=== PATIENT | male | born 1960 | race Caucasian/White ===

== ENCOUNTER 2019-06-11 19:30 | Emergency (ER) | payer MEDICAID ==
[~2019-06-11] VITALS: Ht 180.3 cm; Wt 88.5 kg
[2019-06-11 19:30] VITALS: BP 145/79
--- NOTE | 2019-06-11 19:30 | NUR ---
PATIENT AMBULATED TO ER BED 7.
--- NOTE | 2019-06-11 19:40 | NUR ---
DR. SCHWAB AT BEDSIDE
--- NOTE | 2019-06-11 19:45 | NUR ---
C/O PRESTERNAL CHEST PAIN RADIATING TO BILAT SHOULDERS AND BACK 9/10 AND SHARP STARTING YESTERDAY AFTER MOVING HEAVY OBJECTS. PT REPORTS THAT THE PAIN STARTED AFTER HE WAS MOVING THE OBJECT. PT HAS BEEN USING ICY HOT CREAM WITH VERY LITTLE RELIEF. PT DENIES SOB, NAUSEA, VOMITING. PT SPEAKING IN CLEAR, FULL SENTENCES. PT STATES IT IS UNCOMFORTABLE TO LAY IN BED SO HE IS SITTING AT THE SIDE. BED IN LOW POSITION, SIDE RAIL UP X1. 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
[2019-06-11] MEDS ORDERED: AMLO10TA PO (19:48)
[2019-06-11] MEDS ORDERED: TERA1CAP7 PO (19:48)
[2019-06-11] MEDS ORDERED: ASPI-1205 PO (19:48)
[2019-06-11] MEDS ORDERED: CEPH250C16 PO (19:48)
[2019-06-11] MEDS ORDERED: SIMV10TA1 PO (19:48)
[2019-06-11] MEDS ORDERED: METF500T2 PO (19:48)
[2019-06-11] MEDS ORDERED: BENA20TA PO (19:48)
[2019-06-11] MEDS ORDERED: KETOROLAC 60 MG/2 ML VIAL IM ONE (19:50)
[2019-06-11 21:30] VITALS: BP 145/79
--- NOTE | 2019-06-11 21:30 | NUR ---
DPatient discharged with v/s stable. Written and verbal after care instructions given and explained BY DR SCHWAB. Patient alert, oriented and verbalized understanding of instructions. Ambulatory with steady gait. All questions addressed prior to discharge. ID band removed. Patient advised to follow up with PMD. Rx of NAPROSYN given. Patient educated on indication of medication including possible reaction and side effects BY DR SCHWAB. Opportunity to ask questions provided and answered BY DR SCHWAB.
== END 2019-06-11 21:30 | disposition home or self-care (01) ==
LOC: MED 19:30
DX: S23.9XXA Sprain of unspecified parts of thorax, initial encounter (principal); I10 Essential (primary) hypertension; Z79.82 Long term (current) use of aspirin; Z79.84 Long term (current) use of oral hypoglycemic drugs; Z79.899 Other long term (current) drug therapy; X58.XXXA Exposure to other specified factors, initial encounter; Y93.89 Activity, other specified; Y92.89 Other specified places as the place of occurrence of the external cause; Y99.8 Other external cause status
CPT/HCPCS: 71045; 96372; 99283; J1885; Q0092

== ENCOUNTER 2019-08-24 11:02 | Inpatient (IN) | payer MEDICAID ==
[~2019-08-24] VITALS: Ht 172.7 cm; Wt 87.5 kg
[~2019-08-24 11:02] MED LIST: AMLO10TA PO; ASPI-1205 PO; BENA20TA PO; CEPH250C16 PO; METF500T2 PO; SIMV10TA1 PO; TERA1CAP7 PO
[2019-08-24 11:07] VITALS: BP 151/81
--- NOTE | 2019-08-24 11:12 | NUR ---
Patient ambulated to bed 11.
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
[2019-08-24] MEDS ORDERED: ASPIRIN 81 MG TAB.CHEW PO ONE (11:50)
--- NOTE | 2019-08-24 12:16 | NUR ---
EKG AT BEDSIDE.
--- NOTE | 2019-08-24 13:00 | NUR ---
LABS DRAWN AT BEDSIDE
[2019-08-24 13:20] LABS: HEMATOCRIT 37.1 % (36-52); HEMOGLOBIN 12.4 g/dL (12.0-18.0); MEAN CORPUSCULAR HEMOGLOBIN 32 pg (27-31); MEAN CORPUSCULAR HGB CONC 34 g/dL (33-37); MEAN CORPUSCULAR VOLUME 96.4 fL (80-94); PLATELET COUNT (AUTO) 251 K/uL (140-450); RED BLOOD CELL COUNT(AUTO) 3.84 MIL/uL (4.20-6.10); RED CELL DISTRIBUTION WIDTH 12.8 % (11.6-13.7); WHITE BLOOD COUNT (AUTO) 9.8 K/uL (4.8-10.8)
[2019-08-24 13:24] LABS: ANION GAP 11.5 (8-16); CARBON DIOXIDE 28.3 mmol/L (21-32); CREATININE 0.8 mg/dL (0.7-1.3); POTASSIUM 3.8 mmol/L (3.5-5.1)
[2019-08-24 13:25] LABS: LYMPHOCYTES % (MANUAL) 20 % (20-46)
[2019-08-24 13:26] LABS: EOSINOPHILS % (MANUAL) 1 % (0-4); MONOCYTES % (MANUAL) 9 % (5-12)
[2019-08-24 13:30] LABS: ALBUMIN 3.3 g/dL (3.4-5.0); TOTAL BILIRUBIN 0.3 mg/dL (0.0-1.0)
[2019-08-24] MEDS ORDERED: MORPHINE SULFATE 2 MG/ML SYR IVP PRN (13:45)
[2019-08-24] MEDS ORDERED: ACETAMINOPHEN 325 MG TAB PO PRN (13:45)
[2019-08-24] MEDS ORDERED: ONDANSETRON 4 MG/2 ML VIAL IM/IVP PRN (13:45)
[2019-08-24] MEDS ORDERED: DOCUSATE SODIUM 100 MG GELCAP PO PRN (13:45)
[2019-08-24 14:00] VITALS: BP 169/83
--- NOTE | 2019-08-24 14:00 | NUR ---
PATIENT ARRIVED ON [facility] [[email or web address]] FROM ER VIA GURROUND TOP. ABLE TO AMBULATE FROM [facility] TO [facility] [[email or web address]] BED WITH STEADY GAIT. AAOX4, CALM, COOPERATIVE, SKIN COLOR APPROPRIATE TO ETHNICITY, WARM TO TOUCH. SKIN INTACT. IV SITE INTACT, PATENT, AND INFUSING IVF PER MD ORDERS. ORIENTED PATIENT TO ROOM AND CALL LIGHT. REVIEWED PLAN OF CARE WITH PATIENT. PATIENT VERBALIZED UNDERSTANDING. SAFETY MEASURES IN PLACE, CALL LIGHT WITHIN REACH. WILL CONTINUE TO MONITOR.
--- NOTE | 2019-08-24 14:06 | NUR ---
Pt transferred to Tele via [facility] ROOM 105-A, REPORT GIVEN TO RANJANA CRUZ
[2019-08-24] MEDS ORDERED: MORPHINE SULFATE 2 MG/ML SYR IV PRN (14:25)
[2019-08-24] MEDS ORDERED: NITROGLYCERIN 0.4 MG TAB SL PRN (14:25)
[2019-08-24] MEDS ORDERED: DEXTROSE 50% 50 ML SYR IVP PRN (14:35)
[2019-08-24] MEDS ORDERED: INSULIN LISPRO SLIDING SCALE 100 UNITS/ML VIAL SUBQ PRN (14:35)
[2019-08-24 14:49] LABS: PROTHROMBIN TIME 10.9 secs (10.8-13.4)
[2019-08-24] MEDS: HYDROcodone/APAP 7.5/325 MG 1 TAB PO PRN ×2 (14:58→21:52)
[2019-08-24] MEDS: NACL 0.9% 1,000 ML IV SCH (15:04)
--- NOTE | 2019-08-24 15:04 | NUR ---
PATIENT COMPLAINS OF PAIN ON UPPER BACK. NORCO GIVEN AT THIS TIME. WILL CONTINUE TO MONITOR.
[2019-08-24 15:26] LABS: CHOL/HDL RATIO 4.2 (1-4.5); MAGNESIUM 2.1 mg/dL (1.8-2.4); PHOSPHORUS 3.8 mg/dL (2.5-4.9)
[2019-08-24 15:49] LABS: THYROID STIMULATING HORMONE 1.94 uIU/mL (0.34-3.74)
[2019-08-24 16:00] VITALS: BP 155/71
[2019-08-24] MEDS: BLOOD GLUCOSE MONITORING 1 DEV DEV FS SCH ×2 (16:30→21:47)
[2019-08-24 16:43] LABS: APPEARANCE,URINE CLEAR (CLEAR); BILIRUBIN,URINE NEGATIVE (NEGATIVE); BLOOD, URINE NEGATIVE (NEGATIVE); COLOR,URINE YELLOW (YELLOW); LEUKOCYTE ESTERASE ,URINE NEGATIVE (NEGATIVE); NITRITE, URINE NEGATIVE (NEGATIVE); UGLUCOSE 2+ (NEGATIVE)
[2019-08-24 16:50] LABS: BARBITURATE, URINE NEG. ng/ml (NEG <=200); BENZODIAZEPINE, URINE NEG. ng/mL (NEG <=200); CANNABINOID, URINE NEG. ng/mL (NEG <=50); COCAINE, URINE NEG. ng/mL (NEG <=300); OPIATE, URINE NEG. ng/mL (NEG <=2000); PHENCYCLIDINE SCREEN,URINE NEG. ng/mL (NEG <=25)
[2019-08-24 16:59] LABS: RBC,URINE NONE SEEN /HPF (0-5); WBC,URINE 0-5 /HPF (0-5)
--- NOTE | 2019-08-24 19:26 | NUR ---
GAVE REPORT TO STARS ANALYTICAL LEAD NURSE FOR CONTINUITY OF CARE. PATIENT IN STABLE CONDITION
--- NOTE | 2019-08-24 19:27 | NUR ---
RECEIVED BEDSIDE REPORT FROM DAY RN. PT IS AAOX4 ON RA. PT IS AMBULATORY WITH STEADY GAIT AND SKIN IS INTACT. IV ON R FA 20G NS AT 60M/H. C/C CHEST PAIN RADIATES TO BACK. COOK CHILL TECHNICIAN SAW PT TODAY. WILL TREND TROPONIN PATIENT IS OBSERVATION. POC DISCUSSED WITH PT AND . CALL LIGHT IS WITHIN REACH. WILL ROUND FREQUENTLY.
[2019-08-24 20:00] VITALS: BP 150/77
[2019-08-24] MEDS ORDERED: SIMVASTATIN 40 MG TAB PO SCH (21:00)
[2019-08-24] MEDS ORDERED: SIMVASTATIN 10 MG TAB PO SCH (21:00)
--- NOTE | 2019-08-24 21:50 | NUR ---
VITAL SIGNS ARE WITHIN NORMAL LIMITS. CEE MEDICATIONS GIVEN PER ORDERS. BLOOD SUGAR IS 167 PT REFUSED INSULIN JUST FINISHED DINNER TRAY. WILL RECHECK IN AM EDUCATION GIVEN. NORCO GIVEN FOR BACK PAIN 04/22. ALL SAFETY MEASURES ARE IN PLACE. WILL CONTINUE TO MONITOR.
[2019-08-24] MEDS: BENAZEPRIL 20 MG TAB PO SCH (21:52)
[2019-08-24] MEDS: METOPROLOL 50 MG TAB PO SCH (21:53)
[2019-08-25] VITALS: BP 126/64
--- NOTE | 2019-08-25 00:09 | NUR ---
VITAL SIGNS ARE WITHIN NORMAL LIMITS. SAFETY MEASURES ARE IN PLACE. CALL LIGHT IS WITHIN REACH.
--- NOTE | 2019-08-25 02:00 | NUR ---
PATIENT IS RESTING COMFORTABLY IN BED WITH EYES CLOSED. RESPIRATIONS ARE EQUAL AND UNLABORED. CALL LIGHT IS WITHIN REACH.
[2019-08-25 04:00] VITALS: BP 157/82
--- NOTE | 2019-08-25 04:00 | NUR ---
VITAL SIGNS ARE WITHIN NORMAL LIMITS. SAFETY MEASURES ARE IN PLACE. CALL LIGHT IS WITHIN REACH. WILL CONTINUE TO MONITOR
--- NOTE | 2019-08-25 05:30 | NUR ---
BLOOD SUGAR IS 114 NO COVERAGE NEEDED. ALL NEEDS MET AT THIS TIME. CALL LIGHT IS WITHIN REACH.
[2019-08-25] MEDS: NACL 0.9% 1,000 ML IV SCH (06:07)
[2019-08-25] MEDS: BLOOD GLUCOSE MONITORING 1 DEV DEV FS SCH ×2 (06:16→11:30)
[2019-08-25 06:55] LABS: HEMATOCRIT 36.6 % (36-52); HEMOGLOBIN 12.2 g/dL (12.0-18.0); MEAN CORPUSCULAR HEMOGLOBIN 32 pg (27-31); MEAN CORPUSCULAR HGB CONC 33 g/dL (33-37); MEAN CORPUSCULAR VOLUME 96.4 fL (80-94); PLATELET COUNT (AUTO) 236 K/uL (140-450); RED BLOOD CELL COUNT(AUTO) 3.79 MIL/uL (4.20-6.10); WHITE BLOOD COUNT (AUTO) 8.9 K/uL (4.8-10.8)
[2019-08-25 07:16] LABS: CARBON DIOXIDE 28.1 mmol/L (21-32); CREATININE 0.7 mg/dL (0.7-1.3); POTASSIUM 4.1 mmol/L (3.5-5.1)
--- NOTE | 2019-08-25 07:17 | NUR ---
GAVE BEDSIDE REPORT TO DAY RN. PT ENDORSED IN STABLE CONDITION.
--- NOTE | 2019-08-25 07:18 | NUR ---
RECEIVED REPORT FROM RECOVERY ENGINEER NURSE. PATIENT LYING DOWN IN BED WATCHING TV, AT BEDSIDE. NO DISTRESS NOTED. DENIES ANY PAIN AT THIS TIME. AAXO4, CALM, COOPERATIVE SKIN COLOR APPROPRIATE TO ETHNICITY, WARM TO TOUCH. SKIN INTACT. IV SITE INTACT, PATENT, AND INFUSING IVF PER MD ORDERS. ABDOMEN SOFT, NON-DISTENDED. SAFETY MEASURES IN PLACE, CALL LIGHT WITHIN REACH. WILL CONTINUE TO MONITOR.
[2019-08-25 07:19] LABS: MAGNESIUM 1.9 mg/dL (1.8-2.4); PHOSPHORUS 3.7 mg/dL (2.5-4.9)
[2019-08-25 08:00] VITALS: BP 178/89
[2019-08-25 08:11] LABS: BASOPHILS % (MANUAL) 0 % (0-2); EOSINOPHILS % (MANUAL) 3 % (0-4); LYMPHOCYTES % (MANUAL) 23 % (20-46); MONOCYTES % (MANUAL) 12 % (5-12)
[2019-08-25 08:22] LABS: T4 (THYROXINE) 5.3 ug/dL (4.5-12.0)
[2019-08-25] MEDS ORDERED: ASPI81CT95 PO (08:29)
[2019-08-25] MEDS ORDERED: amLODIPine 5 MG TAB PO SCH (09:00)
[2019-08-25] MEDS ORDERED: ASPIRIN 81 MG TAB.CHEW PO SCH (09:00)
[2019-08-25] MEDS ORDERED: TERAZOSIN 1 MG CAP PO SCH (09:00)
[2019-08-25] MEDS: METOPROLOL 50 MG TAB PO SCH (09:25)
[2019-08-25] MEDS: BENAZEPRIL 20 MG TAB PO SCH (09:26)
[2019-08-25] MEDS: HYDROcodone/APAP 7.5/325 MG 1 TAB PO PRN (09:28)
--- NOTE | 2019-08-25 09:30 | NUR ---
PATIENT SITTING IN BED WATCHING TV. COMPLAINS OF UPPER BACK PAIN, NORCO GIVEN AT THIS TIME. OTHER SCHEDULED MEDICATIONS DUE GIVEN. WILL CONTINUE TO MONITOR.
[2019-08-25] MEDS ORDERED: ENALAPRILAT 2.5 MG/2 ML VIAL IVP SCH (10:46)
--- NOTE | 2019-08-25 11:09 | NUR ---
PATIENT SITTING IN BED WATCHING TV. NO DISTRESS NOTED. DENIES ANY PAIN. SCHEDULED MEDICATIONS DUE GIVEN. WILL CONTINUE TO MONITOR.
[2019-08-25] MEDS ORDERED: INFLUENZA VACCINE QUAD 0.5 ML SYR IMVAC PRN (11:25)
[2019-08-25 12:00] VITALS: BP 141/66
[2019-08-25] MEDS ORDERED: CYCLOBENZAPRINE 10 MG TAB PO SCH (13:00)
--- NOTE | 2019-08-25 13:03 | NUR ---
PATIENT TO BE DISCHARGED. SCHEDULED MEDICATIONS DUE GIVEN. WILL CONTINUE TO [facility].
--- NOTE | 2019-08-25 13:55 | NUR ---
DISCHARGE INSTRUCTIONS PROVIDED TO PATIENT IN PREFERRED LANGUAGE OF POLISH. INSTRUCTIONS ON NEW/CHANGED MEDICATION REGIMEN AND SIDE EFFECTS, DIABETIC DIET REGIMEN DUE TO PREDIABETES, FOLLOW-UP WITH PCP WITHIN 3-5 DAYS AND GET A RECOMMENDED ECHOCARDIOGRAM FROM EMERGENCY MANAGEMENT DIRECTOR. IV SITE REMOVED WITH MINIMAL BLOOD AND LUMEN COMPLETELY INTACT. ALL BELONGINGS WITH PATIENT. PRESCRIPTIONS GIVEN TO PATIENT. ESCORTED PATIENT DOWN TO LOBBY VIA STEADY AMBULATION. PATIENT DISCHARGED AT THIS TIME IN STABLE CONDITION TO HOME VIA PRIVATE VEHICLE.
== END 2019-08-25 13:55 | disposition home or self-care (01) | DRG 203 ==
LOC: MED 11:02 → MTU 13:44
PROVIDERS: ADMIT Family Medicine; ATTEND Family Medicine
DX: M94.0 Chondrocostal junction syndrome [Tietze] (principal); I11.9 Hypertensive heart disease without heart failure; E11.65 Type 2 diabetes mellitus with hyperglycemia; E78.5 Hyperlipidemia, unspecified; E44.1 Mild protein-calorie malnutrition; F17.210 Nicotine dependence, cigarettes, uncomplicated; N40.0 Benign prostatic hyperplasia without lower urinary tract symptoms; Z83.3 Family history of diabetes mellitus; J98.11 Atelectasis; Z68.29 Body mass index [BMI] 29.0-29.9, adult
CPT/HCPCS: 36415; 71045; 80048; 80053; 80305; 81001; 82150; 82550; 82948; 83036; 83690; 83735; 83880; 84100; 84436; 84443; 84484; 85025; 85610; 85730; 87081; 93005; 99285; J3490; J7030

== ENCOUNTER 2019-08-26 05:30 | Emergency (ER) | payer MEDICAID ==
[~2019-08-26] VITALS: Ht 177.8 cm; Wt 88.5 kg
[~2019-08-26 05:30] MED LIST changes: -ASPI-1205 PO; +ASPI81CT95 PO; -CEPH250C16 PO
[2019-08-26 05:40] VITALS: BP 165/74
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
[2019-08-26] MEDS ORDERED: ACETAMINOPHEN 325 MG TAB PO ONE (06:25)
[2019-08-26] MEDS ORDERED: IBUPROFEN 600 MG TAB PO ONE (06:25)
[2019-08-26 07:01] VITALS: BP 145/74
--- NOTE | 2019-08-26 07:02 | NUR ---
Patient discharged with v/s stable. Written and verbal after care instructions given and explained. Patient verbalized understanding. Ambulatory with steady gait. All questions addressed prior to discharge. Advised to follow up with PMD.
== END 2019-08-26 07:02 | disposition home or self-care (01) ==
LOC: MED 05:30
DX: R50.9 Fever, unspecified (principal); I10 Essential (primary) hypertension; Z79.899 Other long term (current) drug therapy
CPT/HCPCS: 99283

== ENCOUNTER 2020-09-28 13:44 | Emergency (ER) | payer MEDICAID ==
[~2020-09-28] VITALS: Ht 180.3 cm; Wt 88.5 kg
[2020-09-28 14:06] VITALS: BP 130/79
--- NOTE | 2020-09-28 14:14 | NUR ---
WAIT AT LOBBY.
[2020-09-28] MEDS ORDERED: ACETAMINOPHEN 325 MG TAB PO ONE (15:20)
--- NOTE | 2020-09-28 15:20 | NUR ---
PT TAKEN TO CT VIA W/C, ACCOMPANIED BY CRUISE STAFF MEMBER.
--- NOTE | 2020-09-28 15:29 | NUR ---
PT TAKEN TO BED 3 VIA W/C FROM CT BY ALPINE PATROLLER
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
--- NOTE | 2020-09-28 16:02 | NUR ---
Dr. Donis is evaluating the patient at bedside.
[2020-09-28 16:20] VITALS: BP 130/79
--- NOTE | 2020-09-28 16:20 | NUR ---
Patient discharged with v/s stable. Written and verbal after care instructions about nasal fracture given and explained. Patient verbalized understanding. Ambulatory with steady gait. All questions addressed prior to discharge. Advised to follow up with PMD.
== END 2020-09-28 16:20 | disposition home or self-care (01) ==
LOC: MED 13:44
DX: S02.2XXA Fracture of nasal bones, initial encounter for closed fracture (principal); E11.9 Type 2 diabetes mellitus without complications; I10 Essential (primary) hypertension; Z79.84 Long term (current) use of oral hypoglycemic drugs; Z79.899 Other long term (current) drug therapy; W50.0XXA Accidental hit or strike by another person, initial encounter; Y93.89 Activity, other specified; Y92.89 Other specified places as the place of occurrence of the external cause; Y99.8 Other external cause status
CPT/HCPCS: 70450; 70486; 99285

== ENCOUNTER 2021-10-06 18:55 | Emergency (ER) | payer MEDICAID ==
[~2021-10-06] VITALS: Ht 180.3 cm; Wt 90.8 kg
--- NOTE | 2021-10-06 19:03 | NUR ---
NAME WAS CALLED IN LOBBY, NO ANSWER
[2021-10-06 19:17] VITALS: BP 131/96
--- NOTE | 2021-10-06 19:26 | NUR ---
PT AMBULATED TO LOBBY.
--- NOTE | 2021-10-06 20:06 | NUR ---
name called in lobby no answer.
--- NOTE | 2021-10-06 20:10 | NUR ---
pt ambulated to bed 11.
--- NOTE | 2021-10-06 20:17 | NUR ---
Dr. Campbell examining patient.
[2021-10-06] MEDS ORDERED: BACITRACIN OINT 500 UNITS/GM PKT TP ONE ×2 (20:23→20:25)
[2021-10-06] MEDS ORDERED: BACI1PAC6 TP (20:35)
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
[2021-10-06 20:43] VITALS: BP 131/96
--- NOTE | 2021-10-06 20:43 | NUR ---
no nursing interventions required.
== END 2021-10-06 20:43 | disposition home or self-care (01) ==
LOC: MED 18:55
DX: S91.101A Unspecified open wound of right great toe without damage to nail, initial encounter (principal); E11.9 Type 2 diabetes mellitus without complications; I10 Essential (primary) hypertension; Z88.0 Allergy status to penicillin; Z79.899 Other long term (current) drug therapy; Z79.82 Long term (current) use of aspirin; Z79.84 Long term (current) use of oral hypoglycemic drugs; W01.198A Fall on same level from slipping, tripping and stumbling with subsequent striking against other object, initial encounter; Y93.89 Activity, other specified; Y92.89 Other specified places as the place of occurrence of the external cause; Y99.8 Other external cause status
CPT/HCPCS: 99282

== ENCOUNTER 2021-11-03 12:08 | Emergency (ER) | payer MEDICAID ==
[~2021-11-03] VITALS: Ht 170.2 cm; Wt 89.6 kg
[~2021-11-03 12:08] MED LIST changes: +BACI1PAC6 TP
[2021-11-03 12:34] VITALS: BP 175/84
[2021-11-03] MEDS ORDERED: IBUPROFEN 600 MG TAB PO ONE (13:05)
--- NOTE | 2021-11-03 13:30 | NUR ---
61 y/o M BIB self from home c/o L knee pain s/p mechanical fall 2 days ago. Patient ambulatory, states he fell onto his hands and knees two days ago. Denies LOC, head/neck/back pain. States bilateral knee pain L > R pain, 3/10, pressure/intermittent, non-radiating pain. Denies LOC. States pain worsens with ambulating. Slight swelling noted to L knee cap. PMH: Pre-DM, HTN meds: Metformin, amlodipine, benazeapril, ASA A: PCN
--- NOTE | 2021-11-03 13:31 | NUR ---
Patient ambulated to chair C
[2021-11-03] MEDS ORDERED: IBUP-2213 PO ×2 (13:57→14:33)
--- NOTE | 2021-11-03 14:20 | NUR ---
Patient's left knee was flip wrapped. ER PA notified and aware of wrap.
== END 2021-11-03 13:33 | disposition home or self-care (01) ==
LOC: MED 12:08
DX: S83.92XA Sprain of unspecified site of left knee, initial encounter (principal); W01.0XXA Fall on same level from slipping, tripping and stumbling without subsequent striking against object, initial encounter; Y93.89 Activity, other specified; Y92.89 Other specified places as the place of occurrence of the external cause; Y99.8 Other external cause status
CPT/HCPCS: 73562; 99283

== ENCOUNTER 2022-01-08 08:55 | Emergency (ER) | payer MEDICAID ==
[~2022-01-08] VITALS: Ht 180.3 cm; Wt 88.5 kg
[~2022-01-08 08:55] MED LIST changes: +IBUP-2213 PO
[2022-01-08 08:58] VITALS: BP 190/73
--- NOTE | 2022-01-08 09:18 | NUR ---
PATIENT AMBULATED TO BED 9
--- NOTE | 2022-01-08 09:22 | NUR ---
61/M BIB SELF C/O OF LEFT KNEE PAIN. PATIENT STATED IT HAS BEEN ONGOING FOR THE PAST 2 MONTHS ON BOTH KNEES, BUT LEFT KNEE IS THE ONE THAT CAUSES THE MOST PAIN. PATIENT STATED THE PAIN IS 7/10 AT THIS TIME. HAS TAKEN IBUPROFEN WITH MINOR RELIEF. PMHX: DM, HTN ALLERGIES: PENICILLIN MEDS: ASPIRIN, NOPROXEN,AMLODIPINE, BENAZAPRIL, METFORMIN
[2022-01-08] MEDS ORDERED: KETOROLAC 30 MG/ML VIAL IM ONE (09:30)
--- NOTE | 2022-01-08 09:49 | NUR ---
PATIENT WC TO RADIOLOGY
--- NOTE | 2022-01-08 10:09 | NUR ---
PATIENT RETURNED FROM RADIOLOGY
--- NOTE | 2022-01-08 10:51 | NUR ---
PATIENT STABLE IN BED, ALL NEEDS MET
[2022-01-08] MEDS ORDERED: NAPR-1704 PO (11:24)
--- NOTE | 2022-01-08 11:33 | NUR ---
patients left knee wrapped with 3in flip wrap
[2022-01-08 11:46] VITALS: BP 177/75
== END 2022-01-08 11:46 | disposition home or self-care (01) ==
LOC: MED 08:55
DX: M70.51 Other bursitis of knee, right knee (principal); M70.52 Other bursitis of knee, left knee; Y93.89 Activity, other specified
CPT/HCPCS: 73562; 96372; 99284; J1885

== ENCOUNTER 2024-07-31 22:11 | Emergency (ER) | payer MEDICAID ==
[~2024-07-31] VITALS: Ht 180.3 cm; Wt 83.9 kg
[~2024-07-31 22:11] MED LIST changes: +BACI-418 TP; -BACI1PAC6 TP; +METF-1139 PO; -METF500T2 PO; +NAPR-1704 PO; +SIMV-371 PO; -SIMV10TA1 PO
[2024-07-31 22:25] VITALS: BP 144/61; PULSE 76; RESP 18; TEMP 98; O2SAT 99
[2024-08-01 00:43] LABS: BASOPHILS # (AUTO) 0.4 K/uL (0.00-0.22); EOSINOPHILS # (AUTO) 0.1 K/uL (0-0.4); EOSINOPHILS % (AUTO) 0.9 % (0.0-4.0); HEMATOCRIT 35.6 % (36-52); LYMPHOCYTES # (AUTO) 1.6 K/uL (2.0-11.5); LYMPHOCYTES % (AUTO) 12.9 % (20.5-51.1); MEAN CORPUSCULAR HEMOGLOBIN 32 pg (27-31); MEAN CORPUSCULAR HGB CONC 34 g/dL (33-37); MEAN CORPUSCULAR VOLUME 95.8 fL (80-94); MONOCYTES # (AUTO) 1.4 K/uL (0.8-1.0); MONOCYTES % (AUTO) 11.3 % (1.7-9.3); NEUTROPHILS # (AUTO) 9.1 K/uL (1.8-7.7); NEUTROPHILS % (AUTO) 71.9 % (42.2-75.2); PLATELET COUNT (AUTO) 231 K/uL (140-450); RED BLOOD CELL COUNT(AUTO) 3.72 MIL/uL (4.20-6.10); RED CELL DISTRIBUTION WIDTH 13.1 % (11.6-13.7); WHITE BLOOD COUNT (AUTO) 12.7 K/uL (4.8-10.8)
[2024-08-01] MEDS: KETOROLAC 60 MG/2 ML VIAL IM ONE (00:50)
[2024-08-01 01:05] LABS: ALBUMIN 3.5 g/dL (3.4-5.0); ANION GAP 6.5 (8-16); CALCIUM 8.3 mg/dL (8.5-10.1); CARBON DIOXIDE 32.2 mmol/L (21-32); POTASSIUM 3.7 mmol/L (3.5-5.1); TOTAL BILIRUBIN 0.8 mg/dL (0.0-1.0); TOTAL PROTEIN, SERUM 6.7 g/dL (6.4-8.2)
[2024-08-01] MEDS: HYDROcodone/APAP 5/325 MG 1 TAB TAB PO ONE (03:57)
== END 2024-08-01 04:26 | disposition home or self-care (01) ==
LOC: MED 22:11
DX: S86.911A Strain of unspecified muscle(s) and tendon(s) at lower leg level, right leg, initial encounter (principal); M17.11 Unilateral primary osteoarthritis, right knee; B34.9 Viral infection, unspecified; E11.9 Type 2 diabetes mellitus without complications; I10 Essential (primary) hypertension; Z20.822 Contact with and (suspected) exposure to COVID-19; Z79.84 Long term (current) use of oral hypoglycemic drugs; Z79.899 Other long term (current) drug therapy; Z88.0 Allergy status to penicillin; X58.XXXA Exposure to other specified factors, initial encounter; Y93.89 Activity, other specified; Y92.89 Other specified places as the place of occurrence of the external cause; Y99.8 Other external cause status
CPT/HCPCS: 36415; 73562; 80053; 82550; 85025; 87426; 96372; 99284; J1885